=== PATIENT | female | born 1955 ===

== ENCOUNTER 2016-12-22 20:52 | Emergency (ER) | payer SELFPAY ==
[2016-12-22 21:12] VITALS: RESP 18; TEMP 99.5
[2016-12-22] MEDS ORDERED: Bacitracin 500 Units/gm Oint Foilpak UD TOP ONE (21:28)
[2016-12-22] MEDS ORDERED: Bacitracin 500 Units/gm Oint Foilpak UD ONE (21:32)
[2016-12-22] MEDS ORDERED: Tetanus/Diphtheria Toxoids 0.5 ml Syringe IM ONE ×3 (21:39→21:56)
--- NOTE | 2016-12-22 21:39 | C.PDOC ---
History Of Present Illness 61 y/o female REZAA s/p slip and fall on wet stairs at work. Patient currently c /o headache, facial pain, neck pain, right wrist pain, chest pain and right hip pain. She states she fell forward and down 6-7 steps. Patient denies LOC, dizziness, SOB, palpitations, abdominal pain, nausea/vomiting. Patient not up to date with tetanus vaccination. - HPI Time Seen by Provider: 12/22/16 21:09 Chief Complaint (Nursing): Trauma History Per: Patient, EMS History/Exam Limitations: no limitations Onset/Duration Of Symptoms: Other ([employer]) Injury Occurred (Timing): Just Before Arrival Severity: Moderate Past Medical History Reviewed: Historical Data, Nursing Documentation, Vital Signs Vital Signs: Last Vital Signs Temp 99.5 F 12/22/16 21:05 Pulse 66 12/22/16 23:06 Resp 18 12/22/16 23:06 BP 138/78 12/22/16 23:06 Pulse Ox 99 12/22/16 23:38 - Medical History PMH: No Chronic Diseases Surgical History: No Surg Hx Family History: States: No Known Family Hx - Social History Hx Alcohol Use: Yes Hx Substance Use: No - Immunization History Hx Tetanus Toxoid Vaccination: No Hx Influenza Vaccination: No Hx Pneumococcal Vaccination: No Review Of Systems Except As Marked, All Systems Reviewed And Found Negative. Constitutional: Negative for: Fever Cardiovascular: Positive for: Chest Pain (pleuritic/reproducible ) Respiratory: Negative for: Shortness of Breath Gastrointestinal: Negative for: Nausea, Abdominal Pain, Diarrhea Musculoskeletal: Positive for: Neck Pain, Other (right hip pain ) Neurological: Positive for: Headache. Negative for: Weakness, Numbness, Dizziness Physical Exam - Physical Exam Appears: Well, Non-toxic, In Acute Distress (in mild pain ) Skin: Warm, Dry, Other (right periorbital abrasion, forehead abrasions) Head: Normacephalic Eye(s): bilateral: Normal Inspection, PERRL, EOMI (no pain with EOM movement ) Oral Mucosa: Moist Neck: Normal ROM, No Midline Cervical Tenderness, Paracervical Tenderness, No Step Off Deformity, Supple Chest: Symmetrical, Tenderness (center of chest/sternum), No Ecchymosis, No Subcutaneous Emphysema Respiratory: Normal Breath Sounds, No Rales, No Rhonchi, No Wheezing Gastrointestinal/Abdominal: Normal Exam, Bowel Sounds, Soft, No Tenderness Extremity: Tenderness (right wrist mild diffuse TTP, no deformity, right posterior hip mild TTP without deformity/leg shortening), Capillary Refill (< 2 sec all digits ), No Swelling Extremity: Bilateral: Atraumatic, Normal ROM Pulses: Left Dorsalis Pedis: Normal, Right Dorsalis Pedis: Normal Neurological/Psych: Oriented x3, Normal Speech, Normal Cognition ED Course And Treatment O2 Sat by Pulse Oximetry: 99 (RA) Pulse Ox Interpretation: Normal - Radiology CXR: Interpreted by Me, Viewed By Me CXR Interpretation: Yes: No Acute Disease. No: Infiltrates, Fracture, Pnemothorax - Other Rad RIGHT WRIST XRAY X-Ray: Interpreted by Me, Viewed By Me (no fractures/dislocations) RIGHT HIP/PELVIS X-Ray: Interpreted by Me, Viewed By Me (no fractures/dislocations) - CT Scan/US CT ORBITS/FACIAL Other Rad Studies (CT/US): Read By Radiologist, Radiology Report Reviewed CT/US Interpretation: Name: GARY COOK Age: 61Years F Date: 12/22/2016. SSN: [id number] : 1955. Study: CT TEMPORAL BONES/IAC/ORBITS /SELLA WORequesting Physician: MIAH MCELROY. Images : 448. Addl Studies: Provided Clinical History: facial injury s/p fall on stairs. CONFIDENTIALITY STATEMENT. This transmission is confidential and is intended to be a privileged communication. It is intended only for the use of the addressee. Access to this. message by anyone else is unauthorized. If you are not the intended recipient, any disclosure, copying, distribution or any action taken, or omitted to. be taken in reliance on it is prohibited and may be unlawful. If you received this communication in error, please notify us by telephone, so that return. of this document to us can be arranged. Page 1 of 2. EXAM: CT Maxillofacial Without Intravenous Contrast. CLINICAL HISTORY: 61 years old, female; Injury or trauma; Fall; Initial encounter; Abrasion and bleeding/hemorrhage;. Cheek bone and eyelid and head/scalp and forehead and jaw ; Loss of consciousness not known;. Right; Uppeupper rightr right; Cheek bone and ocular (eye or eyeball); Additional info: Facial injury. S/P fall on stairs. TECHNIQUE: Axial computed tomography images of the face without intravenous contrast. All CT scans at this. facility use one or more dose reduction techniques, viz.: automated exposure control; ma/kV. adjustment per patient size (including targeted exams where dose is matched to indication; i.e. head);. or iterative reconstruction technique. Coronal and sagittal reformatted images were created and reviewed. COMPARISON: No relevant prior studies available. FINDINGS: Bones/joints: No acute fracture. Soft tissues: Mild facial soft tissue swelling. Orbits: Unremarkable as visualized. Sinuses : Scattered minimal to mild mucosal thickening. No air-fluid levels. Dental: Dental caries. IMPRESSION: 1. No fracture. [facility]. [place] [facility]. Final Radiology Report [id number]. Name: GARY COOK Age: 61Years F Date: 12/22/2016. SSN: [id number] : 1955. Study: CT TEMPORAL BONES/IAC/ORBITS/SELLA WORequesting Physician: MIAH MCELROY. Images: 448. Addl Studies: Provided Clinical History: facial injury s/p fall on stairs. CONFIDENTIALITY STATEMENT. This transmission is confidential and is intended to be a privileged communication. It is intended only for the use of the addressee. Access to this. message by anyone else is unauthorized. If you are not the intended recipient, any disclosure, copying, distribution or any action taken, or omitted to. be taken in reliance on it is prohibited and may be unlawful. If you received this communication in error, please notify us by telephone, so that return. of this document to us can be arranged. Page 2 of 2. 2. Incidental/non-acute findings are described above. Thank you for allowing us to participate in the care of your patient. Dictated and Authenticated by: Alejandro Howard MD. 12/22/2016 10:38 PM Eastern Time ([place] & [place]) CT CSPINE Other Rad Studies (CT/US): Read By Radiologist, Radiology Report Reviewed CT/US Interpretation: IMPRESSION: 1. No fracture. 2. Pulmonary nodule. For low -risk patients, no follow-up is necessary. For high-risk patients. (smoking history or other known risk factors) an optional CT at 12 months could be performed. 3. Incidental/non-acute findings are described above. Initial Report created on 12/22/2016 10:40 PM Eastern Time ([place] & [place]). EXAM: CT Cervical Spine Without Intravenous Contrast. CLINICAL HISTORY: 61 years old, female; Injury or trauma; Fall; Initial encounter; Sprain or strain, cervical ligaments;. Additional info: Neck pain after fall down stairs. TECHNIQUE: Axial computed tomography images of the cervical spine without intravenous contrast. All CT scans. at this facility use one or more dose reduction techniques, viz.: automated exposure control; ma/kV. adjustment per patient size (including targeted exams where dose is matched to indication; i.e. head); . or iterative reconstruction technique. Coronal and sagittal reformatted images were created and reviewed. COMPARISON: No relevant prior studies available. [facility]. [place]. Final Radiology Report . Name: GARY COOK Age: 61Years F Date: 12/22/2016. SSN: [id number] : 1955. Study: CT SPINE CERVICAL WO Requesting Physician: MIAH MCELROY. Images: 495. Addl Studies : Provided Clinical History: neck pain after fall down stairs. CONFIDENTIALITY STATEMENT. This transmission is confidential and is intended to be a privileged communication. It is intended only for the use of the addressee. Access to this. message by anyone else is unauthorized. If you are not the intended recipient, any disclosure, copying, distribution or any action taken, or omitted to. be taken in reliance on it is prohibited and may be unlawful. If you received this communication in error, please notify us by telephone, so that return. of this document to us can be arranged. Page 2 of 2. FINDINGS: Vertebrae: No acute fracture. Incomplete closure of C1 ring, normal variant. Discs/spinal canal/neural foramina: Mild disc herniations within mid and lower cervical spine,. suboptimally evaluated. No significant spinal stenosis. Soft tissues: Unremarkable. Sinuses: Scattered mucosal thickening of visualized sinuses. Dental: Dental caries. Lung apices: Unremarkable as visualized. IMPRESSION: 1. No fracture. 2. Incidental/non- acute findings are described above. Thank you for allowing us to participate in the care of your patient. Dictated and Authenticated by: Alejandro Howard MD. 12/22/2016 10:40 PM Eastern Time ([place] & [place]) CT HEAD Other Rad Studies (CT/US): Read By Radiologist, Radiology Report Reviewed CT/US Interpretation: EXAM: CT Head Without Intravenous Contrast. CLINICAL HISTORY: 61 years old, female; Injury or trauma; Fall; Initial encounter; Abrasion and blunt trauma (contusions. or hematomas); Eye and face and forehead and jaw or chin; Right; Additional info: Head injury, fell. down stairs. TECHNIQUE: Axial computed tomography images of the head/brain without intravenous contrast. All CT scans at. this facility use one or more dose reduction techniques, viz.: automated exposure control; ma/kV. adjustment per patient size (including targeted exams where dose is matched to indication; i.e. head);. or iterative reconstruction technique. Coronal and sagittal reformatted images were created and reviewed. COMPARISON: No relevant prior studies available. FINDINGS: Brain: Minimal atrophy. No intracranial hemorrhage. Dural calcifications. No edema. Ventricles: No hydrocephalus. Bones/joints: No calvarial fracture. Soft tissues: Mild frontal soft tissue swelling. Mastoid air cells: No mastoid effusion. Orbits: Unremarkable as visualized. Sella: Mild enlargement of pituitary gland. IMPRESSION: [facility]. [facility]. Final Radiology Report [id number]. Name: GARY COOK Age: 61Years F Date: 12/22/2016. SSN: [id number] : 1955. Study: CT HEAD WO Requesting Physician: MIAH MCELROY. Images: [id number]. Addl Studies: Provided Clinical History: head injury, fell down stairs. CONFIDENTIALITY STATEMENT. This transmission is confidential and is intended to be a privileged communication. It is intended only for the use of the addressee. Access to this. message by anyone else is unauthorized. If you are not the intended recipient, any disclosure, copying, distribution or any action taken, or omitted to. be taken in reliance on it is prohibited and may be unlawful. If you received this communication in error, please notify us by telephone, so that return. of this document to us can be arranged. Page 2 of 2. 1. No intracranial hemorrhage. 2. See facial bone CT report for additional details. 3. Pituitary enlargement. Recommend nonemergent MRI. Thank you for allowing us to participate in the care of your patient. Dictated and Authenticated by: Alejandro Howard MD. 12/22 10:35 PM Eastern Time ([place] & [place]) Progress Note: CT head/orbits/Cspine and Xrays of chest, right wrist and right hip/pelvis ordered and reviewed. Patient given IM tetanus vaccination, PO tylenol and flexeril. Bacitracin applied to abrasions by ED nurse. Reevaluation Time: 22:50 Reassessment Condition: Improved (Patient reassessed, is resting comfortably and states she feels better. Studied (-) for fractures/acute bony injuries. Patient placed in right wrist removable cockup splint by animal care technician. Rxs given for Naprosyn and Flexeril, and patient instructed to follow up withorthopedics within 1 week. She understands she should return to ED if symptoms worsen.) Disposition Counseled Patient/Family Regarding: Studies Performed, Diagnosis, Need For Followup, Rx Given - Disposition Referrals: [facility] [Outside] Earnest Pichardo MD [Staff Provider] - Disposition: HOME/ ROUTINE Disposition Time: 22:50 Condition: STABLE Additional Instructions: SEGUIMIENTO CON ORTOPEDIA DENTRO DE 1 SEMANA USE MEDICAMENTOS CUANDO SEA NECESARIO PARA EL DOLOR DEVUELVA A LA JUNG DE EMERGENCIA SI LOS SNTOMAS EMPEORARAN Prescriptions: Cyclobenzaprine [Cyclobenzaprine HCl] 10 mg PO BID PRN #15 tab PRN Reason: Muscle Spasm Naproxen [Naprosyn Tab] 375 mg PO BID PRN #20 tab PRN Reason: pain Instructions: Head Injury (ED), Cervical Sprain (ED), Wrist Sprain (ED), Rib Contusion (ED) Forms: [facility] (Singaporean), Gen Discharge Inst Georgian Print Language: UGANDAN - POA Present On Arrival: Falls Or Trauma - Clinical Impression Clinical Impression: Fall (on) (from) other stairs and steps, initial encounter, Acute cervical sprain, Closed head injury, Sprain of wrist, right, Sprain of right hip
--- NOTE | 2016-12-22 22:35 | CT ---
EXAM: CT Head Without Intravenous Contrast CLINICAL HISTORY: 61 years old, female; Injury or trauma; Fall; Initial encounter; Abrasion and blunt trauma (contusions or hematomas); Eye and face and forehead and jaw or chin; Right; Additional info: Head injury, fell down stairs TECHNIQUE: Axial computed tomography images of the head/brain without intravenous contrast. All CT scans at this facility use one or more dose reduction techniques, viz.: automated exposure control; ma/kV adjustment per patient size (including targeted exams where dose is matched to indication; i.e. head); or iterative reconstruction technique. Coronal and sagittal reformatted images were created and reviewed. COMPARISON: No relevant prior studies available. FINDINGS: Brain: Minimal atrophy. No intracranial hemorrhage. Dural calcifications. No edema. Ventricles: No hydrocephalus. Bones/joints: No calvarial fracture. Soft tissues: Mild frontal soft tissue swelling. Mastoid air cells: No mastoid effusion. Orbits: Unremarkable as visualized. Sella: Mild enlargement of pituitary gland. IMPRESSION: 1. No intracranial hemorrhage. 2. See facial bone CT report for additional details. 3. Pituitary enlargement. Recommend nonemergent MRI.
--- NOTE | 2016-12-22 22:38 | CT ---
EXAM: CT Maxillofacial Without Intravenous Contrast CLINICAL HISTORY: 61 years old, female; Injury or trauma; Fall; Initial encounter; Abrasion and bleeding/hemorrhage; Cheek bone and eyelid and head/scalp and forehead and jaw; Loss of consciousness not known; Right; Uppeupper rightr right; Cheek bone and ocular (eye or eyeball); Additional info: Facial injury S/P fall on stairs TECHNIQUE: Axial computed tomography images of the face without intravenous contrast. All CT scans at this facility use one or more dose reduction techniques, viz.: automated exposure control; ma/kV adjustment per patient size (including targeted exams where dose is matched to indication; i.e. head); or iterative reconstruction technique. Coronal and sagittal reformatted images were created and reviewed. COMPARISON: No relevant prior studies available. FINDINGS: Bones/joints: No acute fracture. Soft tissues: Mild facial soft tissue swelling. Orbits: Unremarkable as visualized. Sinuses: Scattered minimal to mild mucosal thickening. No air-fluid levels. Dental: Dental caries. IMPRESSION: 1. No fracture. 2. Incidental/non-acute findings are described above.
--- NOTE | 2016-12-22 22:41 | CT ---
EXAM: CT Cervical Spine Without Intravenous Contrast CLINICAL HISTORY: 61 years old, female; Injury or trauma; Fall; Initial encounter; Sprain or strain, cervical ligaments; Additional info: Neck pain after fall down stairs TECHNIQUE: Axial computed tomography images of the cervical spine without intravenous contrast. All CT scans at this facility use one or more dose reduction techniques, viz.: automated exposure control; ma/kV adjustment per patient size (including targeted exams where dose is matched to indication; i.e. head); or iterative reconstruction technique. Coronal and sagittal reformatted images were created and reviewed. COMPARISON: No relevant prior studies available. FINDINGS: Vertebrae: No acute fracture. Incomplete closure of C1 ring, normal variant. Discs/spinal canal/neural foramina: Mild disc herniations within mid and lower cervical spine, suboptimally evaluated. No significant spinal stenosis. Soft tissues: Unremarkable. Sinuses: Scattered mucosal thickening of visualized sinuses. Dental: Dental caries. Lung apices: Unremarkable as visualized. IMPRESSION: 1. No fracture. 2. Incidental/non-acute findings are described above.
[2016-12-22 23:06] VITALS: BP 138/78; PULSE 66
[2016-12-22 23:19] VITALS: O2SAT 99
--- NOTE | 2016-12-23 08:06 | RAD ---
HISTORY: CP COMPARISON: No prior. TECHNIQUE: Chest PA and lateral FINDINGS: LUNGS: No active pulmonary disease. PLEURA: No significant pleural effusion identified. No pneumothorax apparent. CARDIOVASCULAR: Normal. OSSEOUS STRUCTURES: No significant abnormalities. VISUALIZED UPPER ABDOMEN: Normal. OTHER FINDINGS: None. IMPRESSION: No acute cardiopulmonary disease appreciable.
--- NOTE | 2016-12-23 08:14 | RAD ---
PROCEDURE: Right Hip with pelvis Radiographs. HISTORY: right hip pain after fall down stairs COMPARISON: None. FINDINGS: BONES: No fracture of the pelvic ring of the right hip is appreciated. No suspicious lytic or blastic change. Pubic symphysis appears intact. JOINTS: Degenerative cortical sclerosis appreciate bilateral sacroiliac and hip joints symmetrically. No subluxation or dislocation right hip joint. SOFT TISSUES: Phlebolith like calcifications are identified in the inferior pelvis soft tissues mainly to the right. OTHER FINDINGS: None. IMPRESSION: No acute fracture or dislocation right hip joint. Pelvic ring appears intact including the pubic symphysis. Degenerative changes are discussed above bilaterally.
--- NOTE | 2016-12-23 08:16 | RAD ---
PROCEDURE: Right Wrist Radiographs. HISTORY: right wrist pain after fall down stairs COMPARISON: None. FINDINGS: BONES: No fracture or suspicious lytic or blastic changes seen throughout the carpal bones. No subluxation or dislocation. The navicular bone appears intact. The distal radius and ulna appear intact. Limited degenerate cortical sclerosis appreciate throughout the carpal carpal an carpal/metacarpal joints diffusely. The radiocarpal joints are also mildly degenerated. Local soft tissues appear diffusely unremarkable. JOINTS: As above. SOFT TISSUES: As above. OTHER FINDINGS: None. IMPRESSION: Limited degenerate joint changes seen the right wrist diffusely. No acute fracture or dislocation identified.
--- NOTE | 2016-12-26 00:34 | CARD ---
APPROVED REPORT EKG Measurement Heart [id number] ID [id number] <Conclusion> Normal sinus rhythm Nonspecific T wave abnormality Abnormal ECG
== END 2016-12-22 23:06 | disposition home or self-care (01) ==
LOC: C.ER 20:52
DX: S09.90XA Unspecified injury of head, initial encounter (principal); S13.4XXA Sprain of ligaments of cervical spine, initial encounter; S63.501A Unspecified sprain of right wrist, initial encounter; S73.101A Unspecified sprain of right hip, initial encounter; W10.8XXA Fall (on) (from) other stairs and steps, initial encounter; Y93.89 Activity, other specified; Y92.89 Other specified places as the place of occurrence of the external cause; Y99.8 Other external cause status; Z23 Encounter for immunization